=== PATIENT | male | born 1950 | race Caucasian/White ===

== ENCOUNTER → 2020-02-04 13:16 | Outpatient (BNVA) | payer MEDICARE, MEDICAID, SELFPAY | PROVIDERS: Family Provider Nurse Practitioner; PCP Nurse Practitioner; Visit Provider Nurse Practitioner | DX: E78.5 Hyperlipidemia, unspecified (principal); Z23 Encounter for immunization; I10 Essential (primary) hypertension; M47.22 Other spondylosis with radiculopathy, cervical region; J45.40 Moderate persistent asthma, uncomplicated; E78.2 Mixed hyperlipidemia | CPT/HCPCS: 80053; 80061 ==

== ENCOUNTER 2020-03-21 11:28 | Outpatient (CLI) | payer MEDICARE, MEDICAID, SELFPAY ==
--- NOTE | 2020-03-21 11:36 | XR_ITS ---
WS: [id number] THORACIC SPINE TECHNIQUE: AP and lateral views are performed. HISTORY: pain back COMPARISON: 11/09/2014 Mild RIGHT convex curvature of the thoracic spine. Posterior thoracic alignment is normal. Moderate s pondylitic changes with osteophytes and disc space narrowing throughout the thoracic spine. No fractu res. XR/XR thoracic spine 3V* [id number] IMPRESSION: Moderate spondylitic changes throughout the thoracic spine with mild progressio n since 2013.
--- NOTE | 2020-03-21 11:36 | XR_ITS ---
WS: [id number] LUMBAR SPINE: 3 VIEWS TECHNIQUE: AP, lateral and L5-S1 spot. HISTORY: back pain COMPARISON: 12/21/2010 L5 anterolisthesis by 9 mm, similar to the prior study. Degenerative disc disease and facet arthropat hy has significantly progressed at the L5-S1 level. No fractures. Moderate-sized endplate osteophytes throughout the lumbar spine. Suspect significant stenoses at L4-5 and L5-S1 foramina. Partial narrowing and fusion of the SI joints. XR/XR lumbar spine 2-3V* [id number] IMPRESSION: 1. Significant progression of degenerative changes at the L5-S1 level since e prior study. 2. Grade 1 anterolisthesis of L5. 3. Suspicious for significant foraminal stenosis at L4-5 and L5-S1 since 2010.
--- NOTE | 2020-03-21 11:36 | XR_ITS ---
WS: [id number] RIGHT RIBS, MULTIPLE VIEWS HISTORY: rib pain right COMPARISON: None available. Ribs: No rib fractures or bone destruction identified. Lungs and mediastinum: Visualized lung is clear. No pneumothorax. Mild RIGHT convex curvature thoracic spine. XR/XR ribs RT 2V* [id number] IMPRESSION: No RIGHT rib fractures identified.
== END 2020-03-21 11:29 | disposition home or self-care (01) ==
LOC: RADWPI 11:33
PROVIDERS: Family Provider Nurse Practitioner; PCP Nurse Practitioner; Visit Provider Nurse Practitioner
DX: M54.9 Dorsalgia, unspecified (principal); R07.81 Pleurodynia; M51.36 Other intervertebral disc degeneration, lumbar region
CPT/HCPCS: 71100; 72072; 72100

== ENCOUNTER → 2020-05-03 14:09 | Outpatient (BNVA) | payer MEDICARE, MEDICAID, SELFPAY | PROVIDERS: Family Provider Nurse Practitioner; PCP Nurse Practitioner; Visit Provider Nurse Practitioner | DX: E55.9 Vitamin D deficiency, unspecified (principal); E78.2 Mixed hyperlipidemia; I10 Essential (primary) hypertension; R53.83 Other fatigue | CPT/HCPCS: 80053; 80061; 81000; 82306; 82607; 84443; 85025 ==

== ENCOUNTER → 2020-11-03 14:33 | Outpatient (BNVA) | payer MEDICARE, MEDICAID, SELFPAY | PROVIDERS: Family Provider Nurse Practitioner; PCP Nurse Practitioner; Visit Provider Nurse Practitioner | DX: I10 Essential (primary) hypertension (principal); K59.01 Slow transit constipation; M47.22 Other spondylosis with radiculopathy, cervical region; J45.40 Moderate persistent asthma, uncomplicated; E78.2 Mixed hyperlipidemia | CPT/HCPCS: 74018; 80053; 80061; 81000; 85025 ==

== ENCOUNTER 2020-11-30 11:28 | Outpatient (CLI) | payer MEDICARE, MEDICAID, SELFPAY ==
--- NOTE | 2020-11-30 11:30 | CT_ITS ---
WS: [id number] CT ABDOMEN AND PELVIS NONCONTRAST HISTORY: N28.89 - Other specified disorders of kidney and ureter TECHNIQUE: Imaging performed through the abdomen and pelvis. Coronal and sagittal reformats are submi tted. All CT scans at [facility] use at least one of these dose optimization techniques: automated exposure control; mA and/or kV adjustment per patient size (includes targeted exams where d ose is matched to clinical indication); or iterative reconstruction. DLP: 1244.14 mGycm COMPARISON: None available. Motion artifact at the lung bases and through the abdomen and pelvis. Lower thorax: 2 mm noncalcified nodule at the LEFT lung base. Heart is slightly enlarged. Small hiata l hernia. Liver: Mild heterogeneity throughout the parenchyma. Probably due to hepatic steatosis. Cannot be fur ther evaluated without IV contrast. Gallbladder: Normal gallbladder. Pancreas: Calcifications at the pancreatic head and the body of the pancreas or vascular calcificatio ns. Spleen: Normal. Adrenal glands: Normal. No mass. Right kidney: Normal size kidney. Exophytic low-attenuation mass measuring 1 cm from the lower pole. Left kidney: Nonobstructing calcification in the mid kidney. Exophytic cyst measuring 8 mm from the l ateral kidney. Aorta: Mild ectasia and atherosclerosis. No aneurysm. No free fluid, intraperitoneal air or significant lymphadenopathy. GI tract: Diffuse fecal retention and constipation. Normal appendix. No GI tract obstruction. No wall thickening or colitis. No evidence for diverticulitis or diverticulosis. Abdominal wall: Negative. No hernia. Pelvis: Moderately well distended urinary bladder. There is very mild asymmetric thickening of the RI GHT lateral urinary bladder wall measuring up to 5 mm. Spiculated irregular calcification in the RIGH T lateral urinary bladder with a maximum diameter of 16 mm. Prostate gland is enlarged encroaching in to the urinary bladder with central calcifications. No adenopathy or fluid in the pelvis. Osseous structures: 5 mm anterolisthesis of L5 with bilateral pars defects. Moderate degenerative dis c space narrowing at L5-S1. CT/CT abdomen pelvis wo con [id number] IMPRESSION: 1. No ascites or adenopathy. 2. Asymmetric urinary bladder wall thickening on the RIGHT measuring 5 mm. Add itional spiculated bladder calcification measuring 16 mm. Recommend follow-up a nd evaluation by urology. 3. Moderate diffuse constipation with no obstruction. 4. Prostate gland enlargement. 5. Grade 1 spondylolisthesis of L5 and spondylolysis.
== END 2020-11-30 11:29 | disposition home or self-care (01) ==
LOC: RADWPI 11:34
PROVIDERS: PCP Nurse Practitioner; Visit Provider Nurse Practitioner
DX: N28.89 Other specified disorders of kidney and ureter (principal); K59.00 Constipation, unspecified; N40.0 Benign prostatic hyperplasia without lower urinary tract symptoms; M47.816 Spondylosis without myelopathy or radiculopathy, lumbar region; M43.16 Spondylolisthesis, lumbar region
CPT/HCPCS: 74176

== ENCOUNTER → 2020-12-23 09:42 | Outpatient (BNVA) | payer MEDICARE, MEDICAID, SELFPAY | PROVIDERS: PCP Nurse Practitioner; Visit Provider Urology | DX: Z01.812 Encounter for preprocedural laboratory examination (principal); N21.0 Calculus in bladder | CPT/HCPCS: 87635 ==

== ENCOUNTER 2020-12-26 13:25 | Day surgery (SDC) | payer MEDICARE, MEDICAID, SELFPAY ==
[2020-12-23 17:51] VITALS: BMI 31.6
--- NOTE | 2020-12-26 13:38 | XRR_ITS ---
PROCEDURE INFORMATION: Exam: XR Abdomen, 1 View Exam date and time: 12/26/2020 1:40 PM Age: 70 years old Clinical indication: Screening exam; Other: Preop eswl; Prior surgery; Surgery type: Back; Additional info: Preop eswl, bladder stone TECHNIQUE: Imaging protocol: XR of the abdomen. Views: Frontal supine view of the abdomen. 1 View. COMPARISON: CR XR abdomen 1V* [id number] 11/03/2020 2:39 PM FINDINGS: Gastrointestinal tract: Normal. No bowel dilation. Organs: There is 0.4 cm calcification in the mid left kidney. There is a 1.7 cm multifaceted calcification in the right bladder. Bones/joints: Degenerative change is identified in the spine. XR/XR KUB [id number] IMPRESSION: There is 0.4 cm calcification in the mid left kidney. There is a 1.7 cm multifaceted calcification in the right bladder.
[2020-12-26 14:29] VITALS: BP 127/79; PULSE 76; RESP 18; TEMP 36.6; O2SAT 97
[2020-12-26] MEDS: sodium chloride 0.9% 1,000 ML 30 ML IV (14:35)
--- NOTE | 2020-12-26 14:39 | ANES.PREANE2 ---
Pre-Anesthetic Assessment Pre-Anesthetic Assessment: Height/Weight: Height 1.73 m Weight 94.347 kg Temp Pulse Resp BP Pulse Ox 97.8 F 76 18 127/79 97 12/26/20 14:29 12/26/20 14:29 12/26/20 14:29 12/26/20 14:29 12/26/20 14:29 Preop Diagnosis: Bladder stone Proposed Procedure: Operation Date: 12/26/20 14:40 Proposed Procedures p ESWL [id number](Not Applicable) - Alex Delacruz MD s Cystoscopy(Not Applicable) - Alex Delacruz MD Was Beta Pramod taken within 24 hours: N/A Last intake: Intake Last Liquid Date 12/25/20 Last Liquid Time 21:00 Last Solid Date 12/25/20 Last Solid Time 21:00 Social: Social History: Tobacco and No alcohol Exam: Pre-Anes Outpt Exam: alert, oriented x 3 and regular rate & rhythm Airway: Submandibular: WNL Cervical ROM: WNL MP: 2 Additional comments: upper edentulous Pulmonary: Pulmonary: COPD CV/HEM: CV/HEM: HTN Metabolic: Metabolic: Morbid obesity Musc/skel: Musc/skel: Lower Back Pain and OA/DJD Anesthetic Plan: ASA status: 3 Anesthesia: General Risk of > 500 ml blood loss (7ml/kg in children): No Meds/Allergies Current Medications: Current Medications Generic Name Dose Route Start Last Admin Trade Name Freq PRN Reason Stop Dose Admin Sodium Chloride 1,000 mls @ 30 ml s/hr 12/26/20 13:45 12/26/20 14:35 Sodium Chloride 0.9% IV 12/27/20 13:44 30 mls/hr .Q24H OLIVIA Administration PFSH Anesthesia PFSH: Medical History Bladder stone Bladder wall thickening Cervical radiculopathy due to osteoarthritis of spine Constipation due to slow transit Encounter for counseling for care management of patient with chronic conditions and complex health needs using nurse-based model Essential (primary) hypertension Mixed hyperlipidemia Moderate persistent asthma, uncomplicated Personal history of smoking Vitamin D deficiency Surgical History History of cervical spinal surgery History of colonoscopy 2012 History of excision of pilonidal cyst History of hemorrhoidectomy History of mandibular surgery Family History Other Diabetes Hypertension Social History Smoking and tobacco status: current some day smoker cigars Second hand smoke exposure: Yes Smoking risk assessment/counseling performed?: Yes Alcohol intake: never Desire information about alcohol rehabilitation?: No Counseling given: No Desire information about substance/drug rehabilitation?: No Counseling given: No Adopted: No Caregiver/support person: No Lives independently: Yes Household members: none Marital status: / service: No Current occupational status: retired History of recent travel: No Current gender identity: Male Data Anesthesia Cardiac Studies: No Data to Display
--- NOTE | 2020-12-26 15:10 | P.HPUD_ITS ---
Surgery/Procedure H&P Update DATE OF PROCEDURE: December 26, 2020 DATE H&P PERFORMED: 12/23/20 H&P UPDATE INFORMATION: I have reviewed H&P completed within last 30 days, I have examined patient prior to procedure, No changes to prior documentation and H&P is in [facility] EMR on date indicated PREOP DIAGNOSIS: Bladder stone PLANNED PROCEDURE: Operation Date: 12/26/20 14:40 Proposed Procedures p ESWL [id number](Not Applicable) - Alex Delacruz MD s Cystoscopy(Not Applicable) - Alex Delacruz MD
[2020-12-26] MEDS: levofloxacin-dextrose 5 % 500 MG/100 ML PREMIX 100 MG IV (15:13)
--- NOTE | 2020-12-26 15:13 | P.OP_ITS ---
Operative Report Date of procedure: December 26, 2020 Pre-op Diagnosis: Bladder stone <2.5 cm Post-op Diagnosis: Symptomatic bladder stone Procedure Done: 1. Extracorporeal shockwave lithotripsy to bladder stone 2. Cystoscopy with removal of bladder stone fragments Specimens removed/disposition: Bladder stone fragments Surgeon: Nubia Sound Controller: Patiencech: Karla Anesthesia: General Estimated blood loss: Minimal Urine output: Not measured Complications: None Findings: Stone easily identified with fluoroscopy and focused upon. Fragmented very well. All fragments removed from the bladder with the cystoscope and Ellik evacuator. Condition: stable Disposition: PACU Brief History: Mr. Batista is a very pleasant 70-year-old white male evaluated recently for calcification of the bladder and bladder wall thickening seen on CT scan done for lower urinary tract symptoms and hematuria. Cystoscopy confirmed a rm stone in the bladder and the area of bladder wall thickening appear to be inflammatory changes from the stone itself. No other gross pathology was identified. Options were discussed in he elected ESWL for treatment of the stone with cy stoscopy to remove the stone fragments. Procedure: After routine preoperative evaluation examination and obtaining of informed consent he was taken to the operating suite on 12/26/2020 where general anesthesia was administered without difficulty after appropriate timeout was performed, SCDs confirmed to be functioning, preoperative antibiotics administered, beta- robert protocol confirmed. He was positioned in supine position on the Dornier unit. After prepping a straight catheter was passed into the bladder and 250 cc of saline was instilled into the bladder. With the shock head positioned anteriorly the focal point was brought to the stone which was then treated with ESWL. A total of approximately 2000 shocks were utilized with excellent change. The patient was then repositioned in dorsolithotomy position paying careful attention to avoiding pressure points. A 25 Czech cystoscope sheath with 30 degree lens was advanced into the bladder and an Ellik evacuator was utilized to clear all the fragments from the bladder. No further fragmentation was required. The bladder was drained and the procedure was completed. Tolerated the procedure well without complications and was awakened in the operating room and returned to recovery in stable condition. PLANS: 1. Anticipate discharge from outpatient surgery 2. Follow-up in 6 months with KUB. 3. Continue TAMSULOSIN 0.4 mg p.o. nightly
[2020-12-26 16:09] VITALS: BP 126/67; PULSE 93; RESP 16; TEMP 36.6; O2SAT 96
[2020-12-26 16:10] VITALS: BP 126/67; PULSE 73; RESP 19; O2SAT 100
[2020-12-26 16:15] VITALS: BP 126/67; PULSE 75; RESP 16; TEMP 36.4; O2SAT 98
--- NOTE | 2020-12-26 16:15 | SUR.PHASEI ---
PT AWAKES AND VERBALIZED NO PAIN OR NAUSEA NOTED PT ON RA TRIAL REQUESTS ICE CHIPS.
[2020-12-26 16:20] VITALS: BP 95/54; PULSE 72; RESP 18; TEMP 36.4; O2SAT 95
--- NOTE | 2020-12-26 16:23 | ANE.PACU2 ---
Inpatient post-anesthesia follow up: Airway intact: Yes Vital signs: Temperature 97.8 F Pulse Rate 75 Respiratory Rate 16 Blood Pressure 126/67 Pulse Oximetry 98 Oxygen Delivery Me thod Room Air Oxygen Flow Rate 8 Fraction of Inspir ed Oxygen Hydration adequate: Yes Nausea and vomiting: No Pain level: 1 Mental status: Baseline
[2020-12-26 16:53] VITALS: BP 94/72; PULSE 67; RESP 18; O2SAT 95
--- NOTE | 2020-12-26 17:47 | ANE.PACU2 ---
Inpatient post-anesthesia follow up: Airway intact: Yes Vital signs: Temperature 97.6 F Pulse Rate 67 Respiratory Rate 18 Blood Pressure 94/72 Pulse Oximetry 95 Oxygen Delivery Me thod Room Air Oxygen Flow Rate 8 Fraction of Inspir ed Oxygen Hydration adequate: Yes Nausea and vomiting: No Pain level: 1 Mental status: Baseline
[2020-12-29 22:53] LABS: Stone Source BLADDER STONE
== END 2020-12-26 17:00 | disposition home or self-care (01) ==
PROVIDERS: PCP Nurse Practitioner; Visit Provider Urology
PROC: (CPT 50590; principal; 2020-12-26 14:40)
PROC: 0TJB8ZZ Inspection of Bladder, Via Natural or Artificial Opening Endoscopic (ICD-10-PCS; CPT 52000; 2020-12-26 14:40)
DX: N21.0 Calculus in bladder (principal); J44.9 Chronic obstructive pulmonary disease, unspecified; I10 Essential (primary) hypertension; E66.01 Morbid (severe) obesity due to excess calories; Z68.31 Body mass index [BMI] 31.0-31.9, adult; M19.90 Unspecified osteoarthritis, unspecified site; E78.2 Mixed hyperlipidemia; Z87.891 Personal history of nicotine dependence; Z82.49 Family history of ischemic heart disease and other diseases of the circulatory system; Z83.3 Family history of diabetes mellitus; Z79.82 Long term (current) use of aspirin
CPT/HCPCS: 50590; 52310; 12345; 74018; 82365; 88300; 96365; J1956; J2704; J2710; J3010; J3490; J7030

== ENCOUNTER → 2021-01-13 12:04 | Outpatient (BNVA) | payer MEDICARE, MEDICAID, SELFPAY | PROVIDERS: PCP Nurse Practitioner; Visit Provider Nurse Practitioner | DX: E78.2 Mixed hyperlipidemia (principal); E55.9 Vitamin D deficiency, unspecified; I10 Essential (primary) hypertension; K59.01 Slow transit constipation; M47.22 Other spondylosis with radiculopathy, cervical region; J45.40 Moderate persistent asthma, uncomplicated; R10.12 Left upper quadrant pain | CPT/HCPCS: 80053; 80061; 82306; 85025 ==

== ENCOUNTER 2021-02-02 08:42 | Outpatient (CLI) | payer MEDICARE, MEDICAID, SELFPAY ==
--- NOTE | 2021-02-02 08:45 | US_ITS ---
WS: [id number] ULTRASOUND ABDOMEN CLINICAL INFORMATION: R10.12 - Left upper quadrant pain COMPARISON: None. FINDINGS: Liver Size: Enlarged Craniocaudal length: 19.3 cm. Echogenicity: Normal. Surface nodularity: None. Mass (size and location): None. Bile ducts Intrahepatic ducts: Normal. Common bile duct diameter: 0.3 cm. Gallbladder Normal. Gallstones: None. Gallbladder sludge: None. Gallbladder wall thickening: None. Pericholecystic fluid: None. Sonographic Jurado sign: Absent. Pancreas Not well seen Spleen Splenomegaly: None. Craniocaudal length: 9.5 cm. Right kidney: Normal. Hydronephrosis: None. Size: 11.6 cm x 5.7 cm x 6.1 cm Left kidney: Normal. Hydronephrosis: None. Size: 10.9 cm x 6.1 cm x 5.6 cm. Abdominal aorta and IVC Visualized portions are normal. Ascites: None. US/US abdomen complete* [id number] IMPRESSION: 1. Mild hepatomegaly. 2. Normal gallbladder. 3. No hydronephrosis in either kidney. 4. Pancreas not well seen.
== END 2021-02-02 08:43 | disposition home or self-care (01) ==
LOC: US 08:45
PROVIDERS: PCP Nurse Practitioner; Visit Provider Nurse Practitioner
DX: R10.12 Left upper quadrant pain (principal); R16.0 Hepatomegaly, not elsewhere classified
CPT/HCPCS: 76700

== ENCOUNTER 2021-03-27 09:16 | Outpatient (CLI) | payer MEDICARE, MEDICAID, SELFPAY ==
--- NOTE | 2021-03-27 09:45 | XRR_ITS ---
PROCEDURE INFORMATION: Exam: XR Abdomen Exam date and time: 03/27/2021 9:22 AM Age: 70 years old Clinical indication: Condition or disease; Other: Bladder stones TECHNIQUE: Imaging protocol: XR of the abdomen. Views: Frontal supine view of the abdomen. 1 View. COMPARISON: CR XR KUB [id number] 12/26/2020 1:54 PM FINDINGS: Gastrointestinal tract: Prominent stool suggesting constipation. Intraperitoneal space: Incomplete visualization of the superior and lateral most aspects of the abdomen. Organs: Subcentimeter renal calculi. Bones/joints: Degenerative change. XR/XR KUB [id number] IMPRESSION: Subcentimeter renal calculi.
== END 2021-03-27 09:17 | disposition home or self-care (01) ==
LOC: RAD 09:20
PROVIDERS: PCP Nurse Practitioner; Visit Provider Urology
DX: N21.0 Calculus in bladder (principal); N20.0 Calculus of kidney
CPT/HCPCS: 74018

== ENCOUNTER → 2021-07-04 13:37 | Outpatient (BNVA) | payer MEDICARE, MEDICAID, SELFPAY | PROVIDERS: PCP Nurse Practitioner; Visit Provider Nurse Practitioner | DX: E55.9 Vitamin D deficiency, unspecified (principal); I10 Essential (primary) hypertension; J45.40 Moderate persistent asthma, uncomplicated; K59.01 Slow transit constipation; M47.22 Other spondylosis with radiculopathy, cervical region; E78.2 Mixed hyperlipidemia | CPT/HCPCS: 80053; 80061; 82306; 84443; 85025 ==

== ENCOUNTER → 2022-01-04 13:55 | Outpatient (BNVA) | payer MEDICARE, MEDICAID, SELFPAY | PROVIDERS: PCP Nurse Practitioner; Visit Provider Nurse Practitioner | DX: N20.1 Calculus of ureter (principal); E55.9 Vitamin D deficiency, unspecified; I10 Essential (primary) hypertension | CPT/HCPCS: 74018; 80053; 80061; 81000; 82306; 82607; 84443 ==

== ENCOUNTER → 2022-07-04 13:41 | Outpatient (BNVA) | payer MEDICARE, MEDICAID, SELFPAY | PROVIDERS: PCP Nurse Practitioner; Visit Provider Nurse Practitioner | DX: I10 Essential (primary) hypertension (principal); E55.9 Vitamin D deficiency, unspecified; J45.40 Moderate persistent asthma, uncomplicated; E78.2 Mixed hyperlipidemia; K59.01 Slow transit constipation; M47.22 Other spondylosis with radiculopathy, cervical region; N20.1 Calculus of ureter | CPT/HCPCS: 80053; 80061; 82306; 84443 ==

== ENCOUNTER → 2023-01-07 13:22 | Outpatient (BNVA) | payer MEDICARE, MEDICAID, SELFPAY | PROVIDERS: PCP Nurse Practitioner; Visit Provider Nurse Practitioner | DX: E78.2 Mixed hyperlipidemia (principal); M47.22 Other spondylosis with radiculopathy, cervical region; K59.01 Slow transit constipation; E55.9 Vitamin D deficiency, unspecified; J45.40 Moderate persistent asthma, uncomplicated; N20.1 Calculus of ureter; N52.9 Male erectile dysfunction, unspecified | CPT/HCPCS: 80053; 80061; 85025 ==

== ENCOUNTER 2023-04-10 13:49 | Outpatient (CLI) | payer MEDICARE, MEDICAID, SELFPAY ==
--- NOTE | 2023-04-10 14:45 | CT_ITS ---
WS: [id number] LDCT LUNG CANCER SCREENING HISTORY: Z87.891 - Personal history of nicotine dependence TECHNIQUE: Axial imaging performed from the apices to 1 cm below the costophrenic angles. Coronal and sagittal reformats are submitted with axial MIP series. All CT scans at [facility] use at least one of these dose optimization techniques: automated exposure control; mA and/or kV adjustment per patient size (includes targeted exams where dose is matched to clinical indication); or iterativ e reconstruction. DLP: 77.82 mGy.cm DIvol: Mean CTDIvol: 1.70 (mGy) COMPARISON: Chest CT 11/09/2014 Diagnostic quality: Limited. Significant breathing motion artifact. Lungs: Hyperexpansion, moderate from emphysema. No pulmonary mass or nodule. Small nodules would be o bscured with the amount of breathing motion artifact. No endobronchial lesions. Heart: Normal size heart with no pericardial effusion.. Other findings: No adenopathy. Very mild atherosclerosis aorta. Normal size pulmonary artery. Mild gy necomastia. No adrenal mass. Moderate curvature and degenerative changes in the thoracic spine. No de structive bone lesions. CT/CT lung screening [id number] IMPRESSION: LUNG-RADS: 1-Negative FOLLOW UP: 12 Month: Continue annual screening with LDCT OTHER FINDINGS (S MODIFIER): None.
== END 2023-04-10 13:50 | disposition home or self-care (01) ==
PROVIDERS: PCP Nurse Practitioner; Visit Provider Nurse Practitioner
DX: Z13.83 Encounter for screening for respiratory disorder NEC (principal); Z87.891 Personal history of nicotine dependence
CPT/HCPCS: 71271

== ENCOUNTER → 2023-07-04 14:08 | Outpatient (BNVA) | payer MEDICARE, MEDICAID, SELFPAY | PROVIDERS: PCP Nurse Practitioner; Visit Provider Nurse Practitioner | DX: J45.40 Moderate persistent asthma, uncomplicated (principal); E78.2 Mixed hyperlipidemia; K59.01 Slow transit constipation; M47.22 Other spondylosis with radiculopathy, cervical region; N40.0 Benign prostatic hyperplasia without lower urinary tract symptoms; E55.9 Vitamin D deficiency, unspecified | CPT/HCPCS: 71046; 80053; 85025 ==

== ENCOUNTER → 2024-01-07 13:29 | Outpatient (BNVA) | payer MEDICARE, MEDICAID, SELFPAY | PROVIDERS: PCP Nurse Practitioner; Visit Provider Nurse Practitioner | DX: E78.2 Mixed hyperlipidemia (principal); E55.9 Vitamin D deficiency, unspecified | CPT/HCPCS: 80053; 80061; 82306; 84443 ==

== ENCOUNTER → 2024-04-06 13:40 | Outpatient (BNVA) | payer MEDICARE, MEDICAID, SELFPAY | PROVIDERS: PCP Nurse Practitioner; Visit Provider Nurse Practitioner | DX: Z87.891 Personal history of nicotine dependence (principal); E78.2 Mixed hyperlipidemia; K59.01 Slow transit constipation; J45.40 Moderate persistent asthma, uncomplicated; M47.22 Other spondylosis with radiculopathy, cervical region; N40.0 Benign prostatic hyperplasia without lower urinary tract symptoms | CPT/HCPCS: 71046; 74018; 80053; 85025 ==

== ENCOUNTER → 2024-07-07 13:27 | Outpatient (BNVA) | payer MEDICARE, MEDICAID, SELFPAY | PROVIDERS: PCP Nurse Practitioner; Visit Provider Nurse Practitioner | DX: I10 Essential (primary) hypertension (principal) | CPT/HCPCS: 80053; 80061 ==

== ENCOUNTER → 2025-01-04 13:32 | Outpatient (BNVA) | payer MEDICARE, MEDICAID, SELFPAY | PROVIDERS: PCP Nurse Practitioner; Visit Provider Nurse Practitioner | DX: E55.9 Vitamin D deficiency, unspecified (principal); I10 Essential (primary) hypertension | CPT/HCPCS: 80053; 80061; 82306; 84443 ==

== ENCOUNTER → 2025-04-05 13:32 | Outpatient (BNVA) | payer MEDICAID, SELFPAY | PROVIDERS: PCP Nurse Practitioner; Visit Provider Nurse Practitioner | DX: J45.40 Moderate persistent asthma, uncomplicated (principal); E78.2 Mixed hyperlipidemia; M47.22 Other spondylosis with radiculopathy, cervical region; N40.0 Benign prostatic hyperplasia without lower urinary tract symptoms; I10 Essential (primary) hypertension; K59.01 Slow transit constipation; Z87.891 Personal history of nicotine dependence | CPT/HCPCS: 71046 ==

== ENCOUNTER → 2025-07-05 13:18 | Outpatient (BNVA) | payer MEDICAID, SELFPAY | PROVIDERS: PCP Nurse Practitioner; Visit Provider Nurse Practitioner | DX: Z12.5 Encounter for screening for malignant neoplasm of prostate (principal); E55.9 Vitamin D deficiency, unspecified; I10 Essential (primary) hypertension | CPT/HCPCS: 80053; 80061; 82306; G0103 ==

== ENCOUNTER → 2025-10-04 13:58 | Outpatient (BNVA) | payer OTHER, MEDICAID, SELFPAY | PROVIDERS: PCP Nurse Practitioner; Visit Provider Nurse Practitioner | DX: E78.2 Mixed hyperlipidemia (principal) | CPT/HCPCS: 80053; 85025 ==